=== PATIENT | female | born 1980 | race Two or more races ===

== ENCOUNTER 2021-07-07 00:15 | Emergency (ER) | payer SELFPAY ==
[~2021-07-07] VITALS: Ht 160 cm; Wt 113.6 kg
--- NOTE | 2021-07-07 00:43 | PHYS DOC ---
Past Medical History Past Surgical History: General Adult EDM: Chief Complaint: COUGH HPI: HPI: Patient is a 40 year old female presenting with cough for 3 weeks. Patient reports productive cough with associated shortness of breath. She is also complaining of chest pain and generalized thoracic pain due to coughing too much. She also reports some nausea, but denies abdominal pain and vomiting. She denies fever, although her ED temp is 101.4 F. She states that she saw Dr. Gaxiola earlier today and was given Albuterol, Azithromycin and Losartan. Patient denies any past medical history but states she was given the Losartan because her blood pressure was high today. Unable to get formal interpretation during encounter so history is limited by language barrier. Review of Systems: Review of Systems: Constitutional: Denies fever or chills Eyes: Denies redness or eye pain HENT: Denies nasal congestion or sore throat Respiratory: Reports cough and shortness of breath. Cardiovascular: Reports chest pain. GI: Denies abdominal pain. Reports nausea : Denies dysuria or hematuria Musculoskeletal: Denies back pain or joint pain. Reports chest wall pain. Integument: Denies rash or skin lesions Neurologic: Denies headache, focal weakness or sensory changes Complete systems were reviewed and found to be within normal limits, except as documented in this note.Unable to get formal interpretation during encounter so ROS is limited by language barrier. Heart Score: C/O Chest Pain: Yes HEART Score for Chest Pain: HEART Score for Chest Pain Response (Comments) Value History Slighlty/Non-Suspicious 0 ECG Normal 0 Age >45 - < 65 1 Risk Factors No Risk Factors 0 Troponin < Normal Limit 0 Total 1 Risk Factors: Risk Factors: DM, Current or recent (<one month) smoker, HTN, HLP, family history of CAD, obesity. Risk Scores: Score 0 - 3: 2.5% MACE over next 6 weeks - Discharge Home Score 4 - 6: 20.3% MACE over next 6 weeks - Admit for Clinical Observation Score 7 - 10: 72.7% MACE over next 6 weeks - Early Invasive Strategies Allergies: Allergies: Allergies Coded Allergies Type Severity Reaction Last Updated Verified No Known Drug Allergies 07/07/21 No Physical Exam: PE: Constitutional: Well developed, well nourished,mild distress, non-toxic appearance HENT: Normocephalic, atraumatic Eyes: PERRL, EOMI, conjunctiva normal, no discharge Neck: Normal range of motion, no tenderness, supple Lungs & Thorax: Bilateral wheezing on auscultation. No respiratory distress. equal chest rise and fall Abdomen: Soft, no tenderness Skin: Warm, dry, no erythema, no rash Back: No tenderness, no CVA tenderness Extremities: No tenderness, ROM intact, no edema Neurologic: Alert and oriented X 3, normal motor function, normal sensory function, no focal deficits noted Psychologic: Affect normal, judgment normal Current Patient Data: Vital Signs: Vital Signs Date Time Temp Pulse Resp B/P (MAP) Pulse Ox O2 Delivery O2 Flow Rate FiO2 07/07/21 00:21 101.4 100 18 200/87 (124) 98 Room Air 101.4 EKG: EKG: @0031 NSR 99 BPM 88 QRS 334 QT 434 QTc Q wave in lead III. No ST elevations. Radiology/Procedures: Radiology/Procedures: PROCEDURE: CHEST AP ONLY EXAM: CHEST ONE VIEW. HISTORY: Cough. COMPARISON: None. FINDINGS: A frontal view of the chest is obtained. There are mild infiltrates in the lung bases. There is no pneumothorax or pleural effusion. The heart is mildly enlarged. IMPRESSION: 1. Mild basilar infiltrates versus atelectasis. Mild cardiomegaly. Electronically signed by: Jameson Yoder MD (07/07/2021 1:49 AM) [facility] Course & Med Decision Making: Course & Med Decision Making Pertinent Labs and Imaging studies reviewed. (See chart for details) 40 year old female presents with cough for 3 weeks. She is also complaining of chest pain and shortness of breath. She was febrile on presentation at 101.4 F. Flu swab is negative. D-dimer also negative. CXR showed mild basilar infiltrates versus atelectasis. UA also unremarkable. Advised patient to continue taking the medications she was prescribed this morning. Will also prescribe steroids. Symptoms likely due to bronchitis. Patient stable for discharge with outpatient follow-up with PCP. Discussed findings and plan with patient, who acknowledges understanding and agreement. Soren Disclaimer: Soren Disclaimer: This electronic medical record was generated, in whole or in part, using a voice recognition dictation system. Departure Departure Impression: Primary Impression: Bronchitis Additional Impression: Suspected 2019 novel coronavirus infection Disposition: HOME / SELF CARE / HOMELESS Condition: STABLE Patient Instructions: Acute Bronchitis, [id number] Additional Instructions: Continue use of previously prescribed medications. Definicin Se le realiz la prueba de deteccin del COVID-19 o se le diagnostic dicha enfermedad. Es robin infeccin ocasionada por un nuevo tipo de coronavirus. En la mayora de los casos, el COVID-19 provoca sntomas similares a los del resfriado. En algunas personas, puede ocasionar sntomas ms graves, cheri problemas respiratorios. No existe un tratamiento para el virus COVID-19. El cuerpo elimina la infeccin con el tiempo. El cuidado personal ayuda a aliviar el malestar. Pasos que debe seguir 1. Cuidados personales Descanse cuando sea necesario. Los hbitos saludables pueden ayudarlo a sentirse mejor. Algunas medidas para lograr cambios incluyen lo siguiente: - Elija alimentos saludables, cheri frutas y verduras. Asha abundante cantidad de agua vahid todo el da. - Duerma dayanna por la noche. - Si fuma, intente no hacerlo. [facility] [place] ayudar a mejorar la respiracin. - Evite el alcohol. 2. Mantenga sanos a los dems El virus puede contagiarse a otras personas. Cada vez que estornuda o tose, se liberan gotitas. Las gotitas pueden entrar en la boca, la nariz o los ojos de las personas que se encuentran cerca de usted y ocasionar la infeccin. Para reducir las probabilidades de contagiar el virus COVID-19 a otros, tenga en cuenta lo siguiente: - Qudese en casa el tiempo que el mdico se lo indique. Es posible que deba quedarse en casa hasta que la enfermedad desaparezca. Salga nicamente para recibir atencin mdica o en dinesh de urgencia. - Evite las reas pblicas, los eventos o el transporte pblico. No reanude las actividades laborales o escolares hasta que el mdico lo autorice. - Llame previamente si necesita asistir a un centro mdico. Avise que es posible que haya contrado COVID-19. [facility] [place] ayudar a que le indiquen adonde debe dirigirse. Ta mbin pueden pedirle que use robin mscara facial cuando vaya al consultorio. Si llama a los servicios de asistencia mdica de urgencias, avseles que es posible que haya contrado COVID-19. Mientras est en casa: - Evite el contacto directo con otras personas. Mantngase a robin distancia aproximada de 2 metros. Si es posible, pasen la mayor parte del tiempo en dempsey separadas. - Use robin mscara facial si estar en contacto directo con otras personas, por ejemplo, si compartir robin habitacin o un vehculo. - Pida a alguien que limpie las superficies comunes de la casa. Limpie picaportes, mesadas y lavamanos con limpiadores domsticos todos los simmons. - Al toser o estornudar, cbrase con un pauelo de papel. Despus de usarlo, deschelo de inmediato. Si no tiene un pauelo de papel, tosa o estornude en el pliegue del codo. - Lvese las alyssa con frecuencia. Lvese las alyssa despus de estornudar o toser. Lvese con agua y jabn vahid, al menos, 20 segundos. Si no dispone de agua y jabn, use un limpiador de alyssa a base de alcohol. - No cocine para otros. Evite compartir objetos personales, cheri tenedores, cucharas o cepillos de dientes. - Mientras est enfermo, evite el contacto directo con las mascotas. No hay indicios de si el virus se transmite a las mascotas. Esta es robin medida de seguridad que debe tenerse en cuenta hasta que se sepa ms acerca de daryl virus. El aislamiento puede ser frustrante. La interaccin social puede ayudar. Mantngase en contacto con amigos y familiares por telfono u otros medios tecnolgicos. Puede interactuar con otras personas en el hogar, regina mantenga robin distancia michelle de aprox imadamente 2 metros. Seguimiento Las pruebas para confirmar la presencia del COVID-19 pueden demorar algunos simmons. Es posible que deba seguir los pasos mencionados anteriormente hasta que estn los resultados de las pruebas. Lo llamarn del consultorio mdico para saber si gage habido algn cambio en escamilla art. Tambin le avisarn cuando pueda volver a estar cerca de otras personas. Problemas a los que debe estar atento Comunquese con el mdico si no se recupera segn lo previsto o si tiene problemas cheri los siguientes: - Dificultad para respirar - Dolor de pecho - Empeoramiento de los sntomas Si josseline que tiene robin urgencia, llame a los servicios de asistencia mdica de urgencias de inmediato. As taken from [employer] Benzonatate (BENZONATATE) 200 Mg Capsule 1 CAP PO TID PRN for COUGH for 10 Days, #30 CAP 0 Refills Prov: NESHA ODOM DO 07/07/21 Prednisone (PREDNISONE) 20 Mg Tablet 2 TAB PO DAILY for 4 Days, #8 TAB Start this prescription tomorrow, Thursday07/08/21 Prov: NESHA ODOM DO 07/07/21 NESHA ODOM DO Jul 07, 2021 00:43
[2021-07-07 00:51] LABS: BASO # 0.1 x10^3/uL (0.0-0.2); BASO % 1 % (0-3); EOS # 0.1 x10^3/uL (0.0-0.7); EOS % 2 % (0-3); HEMATOCRIT 30.3 % (36.0-47.0); HEMOGLOBIN 9.5 g/dL (12.0-15.5); LYMPH # 1.6 x10^3/uL (1.0-4.8); LYMPH % 32 % (24-48); MEAN CORPUSCULAR HEMOGLOBIN 22 pg (25-35); MEAN CORPUSCULAR HGB CONC 31 g/dL (31-37); MEAN CORPUSCULAR VOLUME 69 fL (79-100); MONO # 0.8 x10^3/uL (0.0-1.1); MONO % 16 % (0-9); NEUT # 2.5 x10^3/uL (1.8-7.7); NEUT % 50 % (31-73); PLATELET COUNT 371 x10^3/uL (140-400); RED BLOOD COUNT 4.41 x10^6/uL (3.50-5.40); RED CELL DISTRIBUTION WIDTH 17.6 % (11.5-14.5)
[2021-07-07] MEDS ORDERED: DEXAMETHASONE 4 MG TABLET PO ONE (01:00)
[2021-07-07] MEDS ORDERED: ACETAMINOPHEN 500 MG TABLET PO ONE (01:00)
[2021-07-07] MEDS ORDERED: IV NORMAL SALINE 1000ML BAG 1,000 ML IV ONE (01:00)
[2021-07-07 01:09] LABS: CALCIUM 8.2 mg/dL (8.5-10.1); CREATININE 0.5 mg/dL (0.6-1.0); GFR 135.3; POTASSIUM 3.6 mmol/L (3.5-5.1)
[2021-07-07 01:15] LABS: ALBUMIN 3.2 g/dL (3.4-5.0); ALBUMIN/GLOBULIN RATIO 0.7 (1.0-1.7); MAGNESIUM 2.3 mg/dL (1.8-2.4); TOTAL BILIRUBIN 0.4 mg/dL (0.2-1.0); TOTAL PROTEIN 7.9 g/dL (6.4-8.2)
[2021-07-07 01:17] LABS: INFLUENZA A PATIENT NEGATIVE (NEGATIVE); INFLUENZA B PATIENT NEGATIVE (NEGATIVE)
[2021-07-07 01:35] LABS: BILIRUBIN,URINE NEGATIVE (NEG); CLARITY,URINE CLEAR; COLOR,URINE YELLOW; NITRITE,URINE NEGATIVE (NEG); PH,URINE 6.5 (<5.0-8.0); PROTEIN,URINE NEGATIVE (NEG-TRACE); UROBILINOGEN,URINE 0.2 mg/dL (0.2 mg/dL)
--- NOTE | 2021-07-07 01:52 | RAD ---
EXAM: CHEST ONE VIEW. HISTORY: Cough. COMPARISON: None. FINDINGS: A frontal view of the chest is obtained. There are mild infiltrates in the lung bases. There is no pneumothorax or pleural effusion. The heart is mildly enlarged. IMPRESSION: 1. Mild basilar infiltrates versus atelectasis. Mild cardiomegaly. Electronically signed by: Jameson Yoder MD (07/07/2021 1:49 AM) [facility]
[2021-07-07 02:24] LABS: BACTERIA,URINE FEW /HPF (0-FEW); RBC,URINE OCC /HPF (0-2); WBC,URINE OCC /HPF (0-4)
[2021-07-07] MEDS ORDERED: PRED20TA PO (02:41)
[2021-07-07 02:52] VITALS: BP 156/93
[2021-07-07] MEDS ORDERED: BENZ200C47 PO (02:54)
--- NOTE | 2021-07-07 03:19 | EKG ---
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
[2021-07-07 04:49] LABS: PLT ESTIMATE ADEQUATE (ADEQUATE)
[2021-07-07 04:50] LABS: ANISOCYTOSIS SLIGHT; HYPOCHROMIA MOD; MICROCYTOSIS MOD; POLYCHROMASIA SLIGHT
--- NOTE | 2021-07-08 12:17 | NUR ---
IP: Informed pt of negative covid test. Pt verbalized understanding.
== END 2021-07-07 02:58 | disposition home or self-care (01) ==
LOC: ER 00:15
DX: J40 Bronchitis, not specified as acute or chronic (principal); Z20.822 Contact with and (suspected) exposure to COVID-19
CPT/HCPCS: 36415; 71045; 80053; 81001; 81025; 82553; 83690; 83735; 84484; 85025; 85379; 87804; 93005; 96360; 96361; 99285; J7030; U0003; U0005